=== PATIENT | male | born 1995 ===

== ENCOUNTER 2018-03-28 12:50 | Emergency (ER) | payer OTHER ==
[2018-03-28 12:59] VITALS: O2SAT 98
--- NOTE | 2018-03-28 14:06 | ED PDOC ---
Upper Extremity Pain/Injury Time Seen by Provider: 03/28/18 13:45 Chief Complaint (Nursing): Finger,Hand,&Wrist Chief Complaint (Provider): Right hand pain, fall last night History Per: Patient History/Exam Limitations: no limitations Onset/Duration Of Symptoms: Days Current Symptoms Are (Timing): Still Present Quality: Dull Additional Complaint(s): 23 yo male with no medical problems presents for evaluation of right hand pain after "fall". Pt states that he fell and put his hand out. Pt states he has localized pain, posterior medial hand. Pt denies numbness/tingling. Pt did not take anything at home for pain. Pt reports bruising. Past Medical History Reviewed: Historical Data, Nursing Documentation, Vital Signs Vital Signs: Last Vital Signs Temp 98.8 F 03/28/18 12:56 Pulse 79 03/28/18 12:56 Resp 16 03/28/18 12:56 BP 118/78 03/28/18 12:56 Pulse Ox 98 03/28/18 12:56 - Medical History PMH: No Chronic Diseases - Surgical History Surgical History: No Surg Hx - Family History Family History: States: No Known Family Hx - Living Arrangements Living Arrangements: With Family - Social History Current smoker - smoking cessation education provided: No - Allergies Allergies/Adverse Reactions: Allergies Allergy/AdvReac Type Severity Reaction Status Date / Time No Known Allergies Allergy Verified 03/28/18 12:55 Review of Systems ROS Statement: Except As Marked, All Systems Reviewed And Found Negative Constitutional: Negative for: Fever, Chills Musculoskeletal: Positive for: Hand Pain (right ) Skin: Positive for: Bruising Physical Exam - Reviewed Nursing Documentation Reviewed: Yes Vital Signs Reviewed: Yes - Physical Exam Appears: Positive for: Well, Non-toxic, No Acute Distress Head Exam: Positive for: ATRAUMATIC, NORMAL INSPECTION, NORMOCEPHALIC Skin: Positive for: Warm. Negative for: Normal Color ((+) ecchymosis, posterior 4-5 metacarpal, right ) Eye Exam: Positive for: Normal appearance ENT: Positive for: Normal ENT Inspection Neck: Positive for: Normal Cardiovascular/Chest: Negative for: Bradycardia, Tachycardia Respiratory: Negative for: Accessory Muscle Use, Respiratory Distress Pulses-Radial (L): 2+ Pulses-Radial (R): 2+ Back: Positive for: Normal Inspection Extremity: Positive for: Normal ROM, Swelling, Other ((+) tednerness of the 4- 5th metacarpals, right ). Negative for: Deformity Neurologic/Psych: Positive for: Alert, Oriented - ECG O2 Sat by Pulse Oximetry: 98 Medical Decision Making Medical Decision Making: Motrin PO for pain. Hand XR No acute fracture or dislocation on hand XR Disposition - Clinical Impression Clinical Impression: Hand contusion - Patient ED Disposition Is Patient to be Admitted: No Counseled Patient/Family Regarding: Diagnosis, Need For Followup, Rx Given - Disposition Referrals: [facility] [place] [facility] [Outside] Disposition: Routine/Home Disposition Time: 14:48 Condition: GOOD Additional Instructions: Ice, elevation, motrin for pain. Instructions: Contusion (DC) Forms: [facility] (Sudanese) Print Language: POLISH
[2018-03-28 15:05] VITALS: BP 110/70; PULSE 78; RESP 20; TEMP 98
--- NOTE | 2018-03-28 17:24 | RAD ---
PROCEDURE: Right Hand Radiographs. HISTORY: pain, fall - 4-5 metacarpals COMPARISON: None. FINDINGS: BONES: Normal. No fracture. JOINTS: Normal. No osteoarthritic changes. SOFT TISSUES: Normal. OTHER FINDINGS: None. IMPRESSION: Normal right hand radiographs.
== END 2018-03-28 15:05 | disposition home or self-care (01) ==
LOC: H.ER 12:50
DX: S60.221A Contusion of right hand, initial encounter (principal); W19.XXXA Unspecified fall, initial encounter; Y92.89 Other specified places as the place of occurrence of the external cause